=== PATIENT | female | born 1985 | race Caucasian/White ===

== ENCOUNTER → 2022-07-22 | Day surgery (SDC) | payer BC, OTHER | END | disposition home or self-care (01) | LOC: FMAMMOTONE 08:26 | PROVIDERS: ATTEND Physician Assistant | PROC: 0HBT3ZX Excision of Right Breast, Percutaneous Approach, Diagnostic (ICD-10-PCS; principal; 2022-07-22) | DX: N60.11 Diffuse cystic mastopathy of right breast (principal); N60.31 Fibrosclerosis of right breast; N60.81 Other benign mammary dysplasias of right breast; N64.89 Other specified disorders of breast; R92.1 Mammographic calcification found on diagnostic imaging of breast | CPT/HCPCS: 19081; 76098-TC-FY; 87899; 88305-TC; A4648 ==

== ENCOUNTER 2023-03-14 04:12 | Day surgery (SDC) | payer BC, OTHER ==
[2023-03-10 13:30] VITALS: BMI 22.1
[2023-03-14] MEDS ORDERED: ACETAMINOPHEN 325 MG TABLET (FP) PO PRN (07:42)
[2023-03-14] MEDS ORDERED: IBUPROFEN 400 MG TABLET (FP) PO PRN (07:42)
[2023-03-14] MEDS ORDERED: MIDAZOLAM HCL 2 MG/2 ML SINGLE DOSE VIAL ONE (10:35)
[2023-03-14] MEDS ORDERED: PROPOFOL 20 ML ONE (10:35)
[2023-03-14] MEDS ORDERED: DEXAMETHASONE SOD PHOSPHATE 4 MG/1 ML VIAL ONE (10:59)
[2023-03-14] MEDS ORDERED: ONDANSETRON 4 MG/2 ML VIAL ONE (10:59)
[2023-03-14] MEDS ORDERED: ceFAZolin SODIUM 1 GM VIAL IVPB ONE (11:34)
[2023-03-14] MEDS ORDERED: ceFAZolin SODIUM 1 GM VIAL ONE (11:34)
[2023-03-14] MEDS ORDERED: ONDANSETRON 4 MG/2 ML VIAL IVPUSH PRN (11:54)
[2023-03-14] MEDS ORDERED: oxyCODONE HCL 5 MG TABLET PO PRN (11:54)
[2023-03-14] MEDS ORDERED: LACTATED RINGERS SOLUTION 1,000 ML IV SCH (12:00)
[2023-03-14 13:45] VITALS: RESP 18
[2023-03-14] MEDS ORDERED: oxyCODONE HCL 5 MG TABLET ONE (13:58)
[2023-03-14 14:58] VITALS: BP 116/71; PULSE 67; TEMP 98
== END 2023-03-14 15:00 | disposition home or self-care (01) ==
LOC: JASU-SURG 04:12
PROVIDERS: ATTEND Obstetrics & Gynecology
PROC: 0U598ZZ Destruction of Uterus, Via Natural or Artificial Opening Endoscopic (ICD-10-PCS; principal; 2023-03-14 10:00)
DX: D25.0 Submucous leiomyoma of uterus (principal); N94.6 Dysmenorrhea, unspecified
CPT/HCPCS: 81025; 88305-TC; 94760

== ENCOUNTER → 2024-10-29 | Day surgery (SDC) | payer OTHER, BC | END | disposition home or self-care (01) | LOC: JRADIR 11:29 | PROVIDERS: ATTEND Obstetrics & Gynecology | PROC: BU18YZZ Fluoroscopy of Uterus and Fallopian Tubes using Other Contrast (ICD-10-PCS; principal; 2024-10-29) | DX: N97.9 Female infertility, unspecified (principal) | CPT/HCPCS: 36415; 58340; 74740-TC-FY; 76000-TC-FY; 84702; 84703 ==